=== PATIENT | female | born 1950 | race Two or more races ===

== ENCOUNTER 2017-04-01 09:06 | Day surgery (SDC) | payer MEDICARE, OTHER ==
--- NOTE | ~2017-04-01 | EGD ---
EGD REPORT [facility] [address] [address] NAME: ТАТЬЯНА DOLAN : [birth year] STATUS : REG [facility] PAT#: [id number] AGE: 66 ADM/REG DATE : 04/01/17 MR#: [id number] REPORT SERV DATE: 04/01/17 DICTATED BY: JAE DONOHUE DATE: 04/01/17 REPORT STATUS : Draft TRANSCRIBED BY: [employer] DATE: 04/01/17 Endoscopy Center Patient Name: Татьяна Dolan Date of : 1950 Attending MD: JAE DONOHUE MD Procedure Date No Time: 04/01/2017 Procedure: Upper GI endoscopy Indications: Abdominal pain in the left upper quadrant, Iron deficiency anemia Referring MD: MANAV NAYLOR Medicines: See the Anesthesia note for documentation of the administered medications Complications: No immediate complications. Procedure: Pre-Anesthesia Assessment: - ASA Grade Assessment: II - A patient with mild systemic disease. After obtaining informed consent, the endoscope was passed under direct vision. Throughout the procedure, the patient's blood pressure, pulse, and oxygen saturations were monitored continuously. The GIF H190 [id number] was introduced through the mouth, and advanced to the second part of duodenum. The upper GI endoscopy was accomplished without difficulty. The patient tolerated the procedure well. Findings: The 2nd part of the duodenum was normal. Biopsies were taken with a cold forceps for histology. Mild inflammation was found in the gastric antrum. Biopsies were taken with a cold forceps for histology. The cardia and gastric fundus were normal on retroflexion. A small hiatus hernia was present. Impression: - Normal 2nd part of the duodenum. Biopsied. - Gastritis. Biopsied. - Hiatus hernia. Recommendation: - Patient has a contact number available for emergencies. The signs and symptoms of potential delayed complications were discussed with the patient. Return to normal activities tomorrow. Written discharge instructions were provided to the patient. - Regular diet. - Continue present medications. - FOR YOUR BIOPSY RESULTS: Please go to EGD REPORT [address] [address] NAME: ТАТЬЯНА DOLAN [facility] : [birth year] STATUS : REG [facility] PAT#: [id number] AGE: 66 ADM/REG DATE : 04/01/17 MR#: [id number] REPORT SERV DATE: 04/01/17 DICTATED BY: JAE DONOHUE DATE: 04/01/17 REPORT STATUS : Draft TRANSCRIBED BY: [employer] DATE: 04/01/17 [email or web address] and register to receive your results via the portal. Your biopsy results will be posted there in about 7 to 10 days. IF you do not see result in 10 days, call office. Procedure Code(s): --- Professional --- 44536, Esophagogastroduodenoscopy, flexible, transoral; with biopsy, single or multiple Diagnosis Code(s): --- Professional --- K29.70, Gastritis, unspecified, without bleeding K44.9, Diaphragmatic hernia without obstruction or gangrene R10.12, Left upper quadrant pain D50.9, Iron deficiency anemia, unspecified CPT copyright 2013 [employer]. All rights reserved. The codes documented in this report are preliminary and upon ore sampler review may be revised to meet current compliance requirements. Jae Donohue MD JAE DONOHUE MD 04/01/2017 10:31 AM This report has been signed electronically. Number of Addenda: 0 Note Initiated On: 04/01/2017 10:20 AM Scope Withdrawal Time 0 hours 0 minutes 0 seconds [id number] [id number]
--- NOTE | ~2017-04-01 | EGD ---
EGD REPORT [facility] [address] [address] NAME: ТАТЬЯНА DOLAN : 52 STATUS : REG [facility] PAT#: [id number] AGE: 66 ADM/REG DATE : 04/01/17 MR#: [id number] REPORT SERV DATE: 04/01/17 DICTATED BY: JAE DONOHUE DATE: 04/01/17 REPORT STATUS : Draft TRANSCRIBED BY: [employer] DATE: 04/01/17 Endoscopy Center Patient Name: Татьяна Dolan Date of : 1950 Attending MD: JAE DONOHUE MD Procedure Date No Time: 04/01/2017 Procedure: Colonoscopy Indications: This is the patient's first colonoscopy, Iron deficiency anemia Referring MD: MANAV NAYLOR Medicines: See the Anesthesia note for documentation of the administered medications Complications: No immediate complications. Procedure: Pre-Anesthesia Assessment: - ASA Grade Assessment: II - A patient with mild systemic disease. After I obtained informed consent, the scope was passed under direct vision. Throughout the procedure, the patient's blood pressure, pulse, and oxygen saturations were monitored continuously. The [facility] [id number] was introduced through the anus and advanced to the terminal ileum, with identification of the appendiceal orifice and IC valve. The colonoscopy was performed without difficulty. The patient tolerated the procedure well. The quality of the bowel preparation was adequate. Findings: Diverticula were found in the sigmoid colon. Internal hemorrhoids were found during retroflexion and were small. Impression: - Diverticulosis in the sigmoid colon. - Internal hemorrhoids. Recommendation: - Patient has a contact number available for emergencies. The signs and symptoms of potential delayed complications were discussed with the patient. Return to normal activities tomorrow. Written discharge instructions were provided to the patient. - Regular diet. - Continue present medications. - Repeat colonoscopy in 10 years for screening purposes. - Repeat colonoscopy in 10 years. IF develop symptoms like bleeding or diarrhea, or Family history of colon cancer or polyps before age 60, you could require sooner colonoscopy EGD REPORT [address] [place]. [address] NAME: ТАТЬЯНА DOLAN SIMA : 52 STATUS : REG [facility] PAT#: [id number] AGE: 66 ADM/REG DATE : 04/01/17 MR#: [id number] REPORT SERV DATE: 04/01/17 DICTATED BY: JAE DONOHUE DATE: 04/01/17 REPORT STATUS : Draft TRANSCRIBED BY: [employer] DATE: 04/01/17 - Follow up with Dr Donohue or his nurse practitioner in 6 weeks Procedure Code(s): --- Professional --- 68511, Colonoscopy, flexible, proximal to splenic flexure; diagnostic, with or without collection of specimen(s) by brushing or washing, with or without colon decompression (separate procedure) Diagnosis Code(s): --- Professional --- K64.8, Other hemorrhoids K57.30, Diverticulosis of large intestine without perforation or abscess without bleeding D50.9, Iron deficiency anemia, unspecified CPT copyright 2013 [employer]. All rights reserved. The codes documented in this report are preliminary and upon plan examiner review may be revised to meet current compliance requirements. Jae Donohue MD JAE DONOHUE MD 04/01/2017 10:44 AM This report has been signed electronically. Number of Addenda: 0 Note Initiated On: 04/01/2017 10:09 AM Scope Withdrawal Time 0 hours 6 minutes 12 seconds [address] [id number]
[~2017-04-01 09:06] MED LIST: AMIT10 PO; ASAB PO; CYMBALTA30 PO; ETODOLAC200 MG PO; GENPRIL200 MG PO; LISINOPRIL40 MG PO; MACROBID PO; PRAVACHOL40 MG PO; PRILOSEC40 MG PO; SUCR PO; SYN.025B PO
== END 2017-04-01 23:59 | disposition home or self-care (01) ==
LOC: DMU 09:06
PROVIDERS: Internal Medicine Gastroenterology
PROC: 0DJD8ZZ Inspection of Lower Intestinal Tract, Via Natural or Artificial Opening Endoscopic (ICD-10-PCS; principal; 2017-04-01 10:30)
PROC: 0DB68ZX Excision of Stomach, Via Natural or Artificial Opening Endoscopic, Diagnostic (ICD-10-PCS; 2017-04-01 10:30)
DX: K29.70 Gastritis, unspecified, without bleeding (principal); K44.9 Diaphragmatic hernia without obstruction or gangrene; D50.9 Iron deficiency anemia, unspecified; K57.30 Diverticulosis of large intestine without perforation or abscess without bleeding; K64.8 Other hemorrhoids; E78.00 Pure hypercholesterolemia, unspecified; I10 Essential (primary) hypertension; E03.9 Hypothyroidism, unspecified; F41.9 Anxiety disorder, unspecified; Z86.73 Personal history of transient ischemic attack (TIA), and cerebral infarction without residual deficits; Z79.82 Long term (current) use of aspirin; Z79.899 Other long term (current) drug therapy; Z98.890 Other specified postprocedural states
CPT/HCPCS: 88305; J3010